=== PATIENT | female | born 1995 | race Two or more races ===

== ENCOUNTER 2017-10-11 15:31 | Emergency (ER) | payer OTHER ==
[~2017-10-11] VITALS: Ht 162.6 cm; Wt 73.5 kg
[2017-10-11] MEDS ORDERED: Ketorolac 30mg Inj IM ONE (16:30)
[2017-10-11] MEDS ORDERED: Tylenol #3 tab (300mg/30mg) ORAL ONE (17:30)
[2017-10-11] MEDS ORDERED: TYLENOL EXTRA500 MG ORAL (17:34)
[2017-10-11] MEDS ORDERED: ZOFRAN4 M3 ORAL (17:34)
[2017-10-11 17:50] VITALS: BP 133/82
--- NOTE | 2017-10-11 21:37 | Emergency Room Report ---
History of Present Illness General Chief Complaint: Vomiting Source: Patient Present Illness HPI The patient is a 22-year-old female presenting for 3 days of nausea, vomiting, and diarrhea. She admits to a sick contact who is her sibling. She states that she had 2 episodes of diarrhea and vomiting today. She is able to tolerate fluids but has decreased appetite. She admits to subjective fever. She denies any other symptoms including dizziness, VALERO, SOB, dysuria, melena, hematochezia Allergies: Coded Allergies: LATEX, NATURAL RUBBER (Verified Allergy, Intermediate, Hives, 10/11/17) Patient History Past Medical History: see triage record Pertinent Family History: none Last Menstrual Period: 09/24/17 Now: No - unk : 0 Para: 0 Reviewed Nursing Documentation: PMH: Agreed, PSxH: Agreed Nursing Documentation-PMH Past Medical History: No Stated History Review of Systems All Other Systems: negative except mentioned in HPI Physical Exam Vital Signs Date Time Temp Pulse Resp B/P (MAP) Pulse Ox O2 Delivery O2 Flow Rate FiO2 10/11/17 15:47 98.2 113 18 108/76 100 Room Air Sp02 EP Interpretation: reviewed, normal General Appearance: no apparent distress, alert, GCS 15, non-toxic Head: normocephalic, atraumatic ENT: hearing grossly normal, normal pharynx, no angioedema, normal voice Neck: full range of motion, supple/symm/no masses Respiratory: chest non-tender, lungs clear, normal breath sounds, speaking full sentences Gastrointestinal: normal bowel sounds, non tender, soft, non-distended, no guarding, no rebound, tenderness - epigastric Rectal: deferred Genitourinary: normal inspection, no CVA tenderness Musculoskeletal: back normal, gait/station normal, normal range of motion, non- tender Neurologic: alert, oriented x3, responsive, motor strength/tone normal, sensory intact, speech normal Psychiatric: judgement/insight normal, memory normal, mood/affect normal, no suicidal/homicidal ideation Skin: normal color, no rash, warm/dry, well hydrated Medical Decision Making PA Attestation Dr. Cobian is my supervising physician. Patient management was discussed with my supervising physician Diagnostic Impression: Primary Impression: Gastroenteritis ER Course The patient is a 22-year-old female presenting for 3 days of nausea, vomiting, and diarrhea. Differential diagnoses considered but not limited to: Gastroenteritis, GERD, gastritis, appendicitis, pancreatitis PE: Vitals WNL. NAD. Abdomen: Normal appearance. Non distended. No ecchymosis. Increased BS. + Epigastric TTP. No McBurney point tenderness. No guarding. No CVA tenderness the patient given pain medication and zofran and is feeling better She'll be discharged home with the same. She will take in plenty fluids and followup with primary doctor. ER precautions are given Last Vital Signs Date Time Temp Pulse Resp B/P (MAP) Pulse Ox O2 Delivery O2 Flow Rate FiO2 10/11/17 17:50 103 18 133/82 98 Room Air 10/11/17 17:50 98.2 Status: improved Disposition: HOME, SELF-CARE Condition: Improved Scripts Ondansetron* (ZOFRAN*) 4 Mg Tablet 4 MG ORAL Q6H Y for Nausea & Vomiting, #10 TAB Prov: NICK WESTON.AJose 10/11/17 Acetaminophen* (TYLENOL EXTRA STRENGTH*) 500 Mg Tablet 500 MG ORAL Q8H Y for Prn Headache/Temp > 101, #30 TAB 0 Refills Prov: NICK WESTON P.A. 10/11/17 Referrals: NOT CHOSEN [facility]/MD,REFERRING Patient Instructions: Viral Gastroenteritis, Adult, Food Choices to Help Relieve Diarrhea, Adult Additional Instructions: I discussed my findings with the patient. All questions and concerns have been answered. Treatment and medication compliance have been addressed. I advised the patient that they need to follow up with PMD in 3-5 days. Return to ED if symptoms worsen, new symptoms arise, or if needed for any reason. Patient verbalized understanding of discharge instructions. NICK WESTON Oct 11, 2017 21:37
== END 2017-10-11 17:50 | disposition home or self-care (01) ==
LOC: EMR 16:28
DX: K52.9 Noninfective gastroenteritis and colitis, unspecified (principal); Z91.040 Latex allergy status
CPT/HCPCS: 96372; 99284; J1885

== ENCOUNTER 2018-04-12 18:15 | Emergency (ER) | payer OTHER ==
[~2018-04-12] VITALS: Ht 162.6 cm; Wt 73.5 kg
[~2018-04-12 18:15] MED LIST: TYLENOL EXTRA500 MG ORAL; ZOFRAN4 M3 ORAL
[2018-04-12] MEDS ORDERED: Mylanta II UD 30ml ORAL ONE (19:15)
[2018-04-12] MEDS ORDERED: Lidocaine 2% Visc 15ml soln ORAL ONE (19:15)
[2018-04-12 19:26] VITALS: BP 118/78
[2018-04-12] MEDS ORDERED: Prochlorperazine 10mg tab ORAL ONE (19:30)
[2018-04-12 20:26] LABS: APPEARANCE,URINE CLEAR; BILIRUBIN, URINE NEGATIVE (NEGATIVE); GLUCOSE, URINE (UA) NEGATIVE (NEGATIVE); KETONES,URINE 1+ (NEGATIVE); LEUKOCYTE ESTERASE ,URINE NEGATIVE (NEGATIVE); NITRITE,URINE NEGATIVE (NEGATIVE); PH,URINE 6 (4.5-8.0); PROTEIN,URINE NEGATIVE (NEGATIVE); UROBILINOGEN,URINE NORMAL MG/DL (0.0-1.0)
[2018-04-12 20:29] LABS: COLOR,URINE YELLOW
--- NOTE | 2018-04-12 21:05 | Emergency Room Report ---
History of Present Illness General Chief Complaint: Abdominal Pain Source: Patient Present Illness HPI 23 YO Female presents to the ED c/o 03/17 in severity epigastric burning, and intermittent dull VALERO's. Reports hx of VALERO's. Describes her symptoms as painful pelvic cramping, with some spotting. pt reports she had unprotected intercourse few days ago. Pt. reports nausea, denies vomiting. denies dizziness, neck pain/ stiffness, constipation, or . pt. reports hx of irregular and painful periods. she denies vaginal d/c, pelvic pain, pain with intercourse or vaginal lesions/rashes. Pt. reports began spotting yesterday. Denies CP, Palpitations, LOC, AMS,Changes in Vision, Sensation, paresthesias, or a sudden severe headache. Allergies: Coded Allergies: LATEX, NATURAL RUBBER (Verified Allergy, Intermediate, Hives, 10/11/17) Patient History Past Medical History: see triage record Past Surgical History: none Pertinent Family History: none Last Menstrual Period: 02/26/18 Now: No : 0 Para: 0 Reviewed Nursing Documentation: PMH: Agreed; PSxH: Agreed Nursing Documentation-PMH Past Medical History: No History, Except For Hx Cardiac Problems: No - GALLBLADDER AND APPENDIX REMOVED Review of Systems All Other Systems: negative except mentioned in HPI Physical Exam Vital Signs Date Time Temp Pulse Resp B/P (MAP) Pulse Ox O2 Delivery O2 Flow Rate FiO2 04/12/18 18:19 98.3 71 17 118/78 96 Room Air 98.2 Sp02 EP Interpretation: reviewed, normal General Appearance: no apparent distress, alert, GCS 15, non-toxic Head: normocephalic, atraumatic ENT: hearing grossly normal, normal voice Neck: full range of motion Respiratory: lungs clear, normal breath sounds, speaking full sentences Cardiovascular #1: regular rate, rhythm Gastrointestinal: normal bowel sounds, non tender, soft Rectal: deferred Genitourinary: normal inspection, no CVA tenderness, adnexa normal Musculoskeletal: back normal, gait/station normal, normal range of motion Neurologic: alert, oriented x3, responsive, motor strength/tone normal, sensory intact, normal gait, speech normal, grossly normal Psychiatric: judgement/insight normal Skin: normal color, no rash, warm/dry, well hydrated Lymphatic: no adenopathy Medical Decision Making PA Attestation Dr. Tai is my supervising Physician whom patient management has been discussed with. Diagnostic Impression: Primary Impression: Abdominal pain Qualified Codes: R10.13 - Epigastric pain Additional Impression: Frequent headaches ER Course 23 YO Female presents to the ED c/o 6/10 in severity epigastric burning, and intermittent dull VALERO's. Reports hx of VALERO's. Describes her symptoms as painful pelvic cramping, with some spotting. pt reports she had unprotected intercourse few days ago. Pt. reports nausea, denies vomiting. denies dizziness, neck pain/ stiffness, constipation, or . pt. reports hx of irregular and painful periods. she denies vaginal d/c, pelvic pain, pain with intercourse or vaginal lesions/rashes. Pt. reports began spotting yesterday. Denies CP, Palpitations, LOC, AMS,Changes in Vision, Sensation, paresthesias, or a sudden severe headache. Ddx considered but are not limited to Diverticulitis, acute appy, diarrhea,UC, PUD, GE, pancreatitis, gallstone, ovarian torsion, ectopic , PID tubo-ovarian abscess, migraine, cluster VALERO's just to name a few. Vital signs: are WNL, pt. is afebrile H&PE are most consistent with [ ] - evidence to suggest acute abdomen at this time, PID low suspicion. will r/o . pt. non-toxic in appearance and NAD. I do not suspect acute emergent intracranial bleed/pathology. normal neuro exam. ORDERS: -UA:few occult blood and rbc's -URINE HCG:Negative ED INTERVENTIONS: -GI Cocktail -compazine - Pt. declined tylenol -I do not identify an emergent condition at this time. With current presentation , pt. is stable for close outpatient follow up and conservative treatment. D/ w pt. to return promptly to ED with worsening or new symptoms.- Pt. (and or responsible constitution party) verbalizes' understanding and agreement with proposed treatment plan.proposed treatment plan. - D/w pt. that repeat test is recommended in 1-2 weeks. DISCHARGE: At this time pt. is stable for d/c to home. Will provide printed patient care instructions, and any necessary prescriptions. Care plan and follow up instructions have been discussed with the patient prior to discharge. Labs Test 04/12/18 19:35 Urine Color Yellow Urine Appearance Clear Urine pH 6 (4.5-8.0) Urine Specific [place] 1.025 (1.005-1.035) Urine Protein Negative (NEGATIVE) Urine Glucose (UA) Negative (NEGATIVE) Urine Ketones 1+ (NEGATIVE) Urine Occult Blood 1+ (NEGATIVE) Urine Nitrite Negative (NEGATIVE) Urine Bilirubin Negative (NEGATIVE) Urine Urobilinogen Normal MG/DL (0.0-1.0) Urine Leukocyte Esterase Negative (NEGATIVE) Urine RBC 2-4 /HPF (0 - 2) Urine WBC 0-2 /HPF (0 - 2) Urine Squamous Epithelial Cells Few /LPF (NONE/OCC) Urine Bacteria Few /HPF (NONE) Urine Mucus Moderate /LPF (NONE/OCC) Urine HCG, Qualitative Negative (NEGATIVE) Last Vital Signs Date Time Temp Pulse Resp B/P (MAP) Pulse Ox O2 Delivery O2 Flow Rate FiO2 04/12/18 19:26 98.2 17 118/78 96 Room Air 98.2 04/12/18 18:19 71 Disposition: HOME, SELF-CARE Condition: Stable Scripts Ranitidine Hcl* (ZANTAC*) 150 Mg Tablet 150 MG ORAL TWICE A DAY for 7 Days, #14 TAB Prov: Sonia Fuentes 04/12/18 Prochlorperazine (COMPAZINE*) 10 Mg Tablet 10 MG ORAL Q6H PRN for For Headache, #5 TAB Prov: Sonia Fuentes 04/12/18 Aspirin/Acetaminophen/Caffeine (EXCEDRIN MIGRAINE GELTAB) 1 Each Tablet 1 EACH PO Q6HR, #20 TAB Prov: Sonia Fuentes 04/12/18 Referrals: [facility],REFERRING (PCP) Patient Instructions: Abdominal Pain, Adult Additional Instructions: Take medications as directed. Follow up with a Primary Care Provider in 3-5 days, even if your symptoms have resolved. Recommend OBGYN follow up as well. repeat testing in 2 weeks. --Please review list of primary care clinics, if you do not already have a primary care provider Return sooner to ED if new symptoms occur, or current symptoms become worse. - Please note that this Emergency Department Report was dictated using [employer] assistant technology software, occasionally this can lead to erroneous entry secondary to interpretation by the dictation equipment. Sonia Fuentes Apr 12, 2018 21:05
[2018-04-12] MEDS ORDERED: COMPAZINE10 MG ORAL (21:06)
[2018-04-12] MEDS ORDERED: ZANTAC150 MG ORAL (21:06)
[2018-04-12] MEDS ORDERED: EXCEDRIN MIGRA1 EACH PO (21:06)
[2018-04-12 21:15] VITALS: BP 118/78
== END 2018-04-12 21:15 | disposition home or self-care (01) ==
LOC: EMR 18:36
DX: R10.13 Epigastric pain (principal); R51 Headache; Z91.040 Latex allergy status; Z90.49 Acquired absence of other specified parts of digestive tract
CPT/HCPCS: 81003; 81025; 99284

== ENCOUNTER 2018-07-01 10:11 | Emergency (ER) | payer OTHER ==
[~2018-07-01] VITALS: Ht 162.6 cm; Wt 74.8 kg
[~2018-07-01 10:11] MED LIST changes: +COMPAZINE10 MG ORAL; +EXCEDRIN MIGRA1 EACH PO; +ZANTAC150 MG ORAL
[2018-07-01 10:31] VITALS: BP 121/73
[2018-07-01 10:46] LABS: APPEARANCE,URINE CLEAR; BILIRUBIN, URINE NEGATIVE (NEGATIVE); COLOR,URINE PALE YELLOW; GLUCOSE, URINE (UA) NEGATIVE (NEGATIVE); KETONES,URINE NEGATIVE (NEGATIVE); LEUKOCYTE ESTERASE ,URINE NEGATIVE (NEGATIVE); NITRITE,URINE NEGATIVE (NEGATIVE); PH,URINE 8 (4.5-8.0); PROTEIN,URINE NEGATIVE (NEGATIVE); UROBILINOGEN,URINE NORMAL MG/DL (0.0-1.0)
--- NOTE | 2018-07-01 11:47 | Emergency Room Report ---
History of Present Illness General Chief Complaint: Abdominal Pain Source: Patient Present Illness HPI Patient's 23-year-old female presented after increased abdominal pain. Patient reports having increased lower bowel pain associated with nausea and vomiting. She reports having symptoms for approximately 2 weeks. Patient reports having decreased appetite. Patient had unprotected sex approximately a month ago. She denies any fever. She reports multiple episodes of nausea and vomiting. Allergies: Coded Allergies: LATEX, NATURAL RUBBER (Verified Allergy, Intermediate, Hives, 07/01/18) Patient History Last Menstrual Period: May 22, 2018 Reviewed Nursing Documentation: PMH: Agreed; PSxH: Agreed Nursing Documentation-PMH Hx Cardiac Problems: No - GALLBLADDER 2015 AND APPENDIX 2012 REMOVED Review of Systems All Other Systems: negative except mentioned in HPI Physical Exam Vital Signs Date Time Temp Pulse Resp B/P (MAP) Pulse Ox O2 Delivery O2 Flow Rate FiO2 07/01/18 10:20 98.3 79 15 121/73 98 Room Air 98.2 Sp02 EP Interpretation: reviewed, normal General Appearance: normal inspection, well appearing, no apparent distress, alert, GCS 15 Head: atraumatic ENT: normal ENT inspection, hearing grossly normal, normal voice Neck: normal inspection, full range of motion, supple, no bony tend Respiratory: normal inspection, lungs clear, normal breath sounds, no respiratory distress, no retraction, no wheezing Cardiovascular #1: regular rate, rhythm, no edema Gastrointestinal: normal inspection, normal bowel sounds, non tender, soft, no guarding, no hernia Genitourinary: no CVA tenderness Musculoskeletal: normal inspection, back normal, normal range of motion Neurologic: normal inspection, alert, oriented x3, responsive, thermoforming machine operator III-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 Differential diagnoses included ectopic , ischemic bowel, appendicitis, perforated viscus, abdominal aortic aneurysm, inferior myocardial infarction, viral gastroenteritis. Because of complexity of patient's case laboratory testing and imaging studies were ordered. A urine test was noted to be positive. Patient was advised risk benefits and alternatives of Zofran and she indicated understanding and wanted to proceed with Zofran had despite risks. Patient was given IV fluids as well as Zofran.Pelvic ultrasound showed intrauterine gestational sac without pole. The patient appears to have early . The patient was given IV fluids with improvement in her symptoms.The patient is advised to follow up with primary care doctor in 1-2 days. Patient is advised to return if any worsening condition or if any changes in status that are concerning. This report is dictated with [employer] executive business coach software which may occasionally lead to discrepancies related to use of this software. Labs Test 07/01/18 08:30 07/01/18 12:00 Urine Color Pale yellow Urine Appearance Clear Urine pH 8 (4.5-8.0) Urine Specific [place] 1.010 (1.005-1.035) Urine Protein Negative (NEGATIVE) Urine Glucose (UA) Negative (NEGATIVE) Urine Ketones Negative (NEGATIVE) Urine Blood Negative (NEGATIVE) Urine Nitrite Negative (NEGATIVE) Urine Bilirubin Negative (NEGATIVE) Urine Urobilinogen Normal MG/DL (0.0-1.0) Urine Leukocyte Esterase Negative (NEGATIVE) Urine HCG, Qualitative Positive (NEGATIVE) White Blood Count 6.1 K/UL (4.8-10.8) Red Blood Count 4.39 M/UL (4.20-5.40) Hemoglobin 13.4 G/DL (12.0-16.0) Hematocrit 39.5 % (37.0-47.0) Mean Corpuscular Volume 90 FL (80-99) Mean Corpuscular Hemoglobin 30.5 PG (27.0-31.0) Mean Corpuscular Hemoglobin Concent 33.9 G/DL (32.0-36.0) Red Cell Distribution Width 11.0 % (11.6-14.8) Platelet Count 238 K/UL (150-450) Mean Platelet Volume 8.7 FL (6.5-10.1) Neutrophils (%) (Auto) 67.5 % (45.0-75.0) Lymphocytes (%) (Auto) 25.3 % (20.0-45.0) Monocytes (%) (Auto) 5.1 % (1.0-10.0) Eosinophils (%) (Auto) 1.5 % (0.0-3.0) Basophils (%) (Auto) 0.7 % (0.0-2.0) Sodium Level 136 MMOL/L (136-145) Potassium Level 4.2 MMOL/L (3.5-5.1) Chloride Level 103 MMOL/L (98-107) Carbon Dioxide Level 25 MMOL/L (21-32) Anion Gap 8 mmol/L (5-15) Blood Urea Nitrogen 6 mg/dL (7-18) Creatinine 0.7 MG/DL (0.55-1.30) Estimat Glomerular Filtration Rate > 60 mL/min (>60) Glucose Level 91 MG/DL (74-106) Calcium Level 9.2 MG/DL (8.5-10.1) Total Bilirubin 0.4 MG/DL (0.2-1.0) Aspartate Amino Transf (AST/SGOT) 24 U/L (15-37) Alanine Aminotransferase (ALT/SGPT) 24 U/L (12-78) Alkaline Phosphatase 70 U/L (46-116) Total Protein 7.8 G/DL (6.4-8.2) Albumin 4.0 G/DL (3.4-5.0) Globulin 3.8 g/dL Albumin/Globulin Ratio 1.1 (1.0-2.7) Lipase 79 U/L (73-393) Human Chorionic Gonadotropin, Quant 3801 mIU/mL (1-6) Last Vital Signs Date Time Temp Pulse Resp B/P (MAP) Pulse Ox O2 Delivery O2 Flow Rate FiO2 07/01/18 10:31 98.2 69 15 121/73 98 Room Air 98.2 Status: improved Disposition: HOME, SELF-CARE Condition: Stable Scripts Doxylamine/Pyridoxine Hcl (SWATHI LUGO 10-10 MG TABLET) 1 Each Tablet. 1 EACH PO [facility], #30 TAB Prov: Shailesh Tai MD 07/01/18 Referrals: [facility],REFERRING (PCP) Shailesh Tai MD Jul 01, 2018 11:47
[2018-07-01 12:30] LABS: BASOPHILS % (AUTO) 0.7 % (0.0-2.0); EOSINOPHILS % (AUTO) 1.5 % (0.0-3.0); HEMATOCRIT 39.5 % (37.0-47.0); HEMOGLOBIN 13.4 G/DL (12.0-16.0); LYMPHOCYTES % (AUTO) 25.3 % (20.0-45.0); MEAN CORPUSCULAR VOLUME 90 FL (80-99); MONOCYTES % (AUTO) 5.1 % (1.0-10.0); NEUTROPHILS % (AUTO) 67.5 % (45.0-75.0); PLATELET COUNT 238 K/UL (150-450); RED BLOOD COUNT 4.39 M/UL (4.20-5.40); WHITE BLOOD COUNT 6.1 K/UL (4.8-10.8)
[2018-07-01 12:34] LABS: ANION GAP 8 mmol/L (5-15); BLOOD UREA NITROGEN 6 mg/dL (7-18); CALCIUM 9.2 MG/DL (8.5-10.1); CARBON DIOXIDE 25 MMOL/L (21-32); CHLORIDE 103 MMOL/L (98-107); CREATININE 0.7 MG/DL (0.55-1.30); POTASSIUM 4.2 MMOL/L (3.5-5.1); SODIUM 136 MMOL/L (136-145)
[2018-07-01 12:39] LABS: ALANINE AMINOTRANSFERASE 24 U/L (12-78); ALBUMIN/GLOBULIN RATIO 1.1 (1.0-2.7); ALKALINE PHOSPHATASE 70 U/L (46-116); ASPARTATE AMINO TRANSFERASE 24 U/L (15-37); BILIRUBIN,TOTAL 0.4 MG/DL (0.2-1.0)
[2018-07-01] MEDS ORDERED: DICLEGIS DR 101 EACH PO (14:04)
[2018-07-01 14:10] VITALS: BP_SYST 121; BP_SYST 127; BP_DIAS 69; BP_DIAS 73
--- NOTE | 2018-07-01 14:33 | Diagnostic Imaging Report ---
Indication: Pain. Technique: Transabdominal and endovaginal pelvic ultrasound was performed. Duplex Doppler evaluation was also performed. Findings: The uterus measures 7.3 x 5 x 3.7 cm. The endometrium is thickened at 1.7 cm. A anechoic structure is noted within the endometrial cavity with diameter of approximately 7 mm. This is too small for reliable dating. No yolk sac or pole is identified. The right ovary measures 3.2 x 2.9 x 1.9 cm/9 mL. A likely corpus luteum cyst is noted in the right ovary measuring approximately 1.9 cm. The left ovary measures 2.8 x 2.2 x 1.8 cm/5.5 mL. Color and Doppler flow is noted to the bilateral ovaries. There is trace free pelvic fluid. IMPRESSION: Well-circumscribed cystic intrauterine structure may represent a gestational sac. No yolk sac or pole identified at this time. Findings may be related to early . Additional etiologies not excluded. Recommend correlation with trended beta-HCG and short-term interval follow-up ultrasound.
== END 2018-07-01 14:10 | disposition home or self-care (01) ==
LOC: EMR 10:39
DX: O26.891 Other specified pregnancy related conditions, first trimester (principal); R10.9 Unspecified abdominal pain; Z3A.01 Less than 8 weeks gestation of pregnancy
CPT/HCPCS: 36415; 76801; 80053; 81003; 81025; 83690; 84702; 85025; 86850; 86900; 86901; 96374; 99284; J2405

== ENCOUNTER 2019-04-21 09:50 | Emergency (ER) | payer OTHER ==
[~2019-04-21] VITALS: Ht 162.6 cm; Wt 70.3 kg
[~2019-04-21 09:50] MED LIST changes: +DICLEGIS DR 101 EACH PO
--- NOTE | 2019-04-21 10:04 | NUR ---
ED Nurse Note: pt walked in due to abdominal pain started 5 days ago, pt stated she gave 8 weeks ago and also complaining of rash on her genital area. pt complains of 5/10 lower abdominal pain accompanied by nausea. will continue to monitor.
[2019-04-21 10:08] VITALS: BP 111/71
--- NOTE | 2019-04-21 10:17 | NUR ---
ED Nurse Note: ermd on bedside with maulik nesbitt.
--- NOTE | 2019-04-21 10:31 | NUR ---
ED Nurse Note: pt able to give urine sample and was sent to lab.
--- NOTE | 2019-04-21 10:56 | Emergency Room Report ---
History of Present Illness General Chief Complaint: Abdominal Pain Source: Patient Present Illness HPI 24-year-old female presents with vaginal discharge x5 days, white, thick white contest consistency, achy abdominal pain, no fevers no chills, patient recently gave , she denies any chest pain, no shortness of breath, she denies any aggravating or alleviating factors for the lower abdominal pain. Patient presents for evaluation Allergies: Coded Allergies: LATEX, NATURAL RUBBER (Verified Allergy, Intermediate, Hives, 07/01/18) Patient History Past Medical History: see triage record Now: No Reviewed Nursing Documentation: PMH: Agreed; PSxH: Agreed Nursing Documentation-PMH Past Medical History: No History, Except For Hx Cardiac Problems: No - GALLBLADDER 2015 AND APPENDIX 2013 REMOVED Review of Systems Constitutional: Denies: chills, fever Eye: Denies: blurred vision, double vision ENT: Denies: throat pain, nasal discharge Respiratory: Denies: cough, shortness of breath Cardiovascular: Denies: chest pain, palpitations Gastrointestinal: Reports: abdominal pain; Denies: diarrhea, nausea, vomiting Genitourinary: Reports: other - Vaginal discharge; Denies: dysuria, pain Musculoskeletal: Denies: back pain, muscle pain Skin: Denies: rash, lesions Neurological: Denies: headache, focal weakness Hematologic/Lymphatic: Denies: easy bleeding, easy bruising All Other Systems: negative except mentioned in HPI Physical Exam Vital Signs Date Time Temp Pulse Resp B/P (MAP) Pulse Ox O2 Delivery O2 Flow Rate FiO2 04/21/19 09:53 97.5 69 20 111/71 (84) 99 Room Air Sp02 EP Interpretation: reviewed, normal General Appearance: well appearing, no apparent distress, alert Head: normocephalic, atraumatic Eyes: bilateral eye PERRL, bilateral eye EOMI ENT: uvula midline, moist mucus membranes Neck: supple, thyroid normal, supple/symm/no masses Respiratory: lungs clear, no respiratory distress, no retraction, no accessory muscle use Cardiovascular #1: normal peripheral pulses, regular rate, rhythm, no edema, no gallop, no murmur Gastrointestinal: non tender, soft, no guarding, no rebound Genitourinary: ext genitalia/vag normal, other - Manager [employer] Katheryn PAGAN, patient with white cottage cheeselike discharge, no CMT, Musculoskeletal: normal inspection Neurologic: alert, oriented x3 Psychiatric: mood/affect normal Skin: no rash, warm/dry Medical Decision Making ER Course Patient most likely with candidal vaginitis, patient given a dose of fluconazole in the emergency room, will disposition patient home with return precautions, patient counseled to follow-up with [facility], Suspicion for intra-abdominal pathology, low suspicion for SBO, low suspicion for diverticulitis abdomen soft NT Last Vital Signs Date Time Temp Pulse Resp B/P (MAP) Pulse Ox O2 Delivery O2 Flow Rate FiO2 04/21/19 10:08 97.5 69 20 111/71 99 Room Air Disposition: HOME, SELF-CARE Condition: Improved Referrals: [facility],REFERRING (PCP) [facility] Patient Instructions: Vaginitis, [id number], Abdominal Pain, Adult Additional Instructions: The patient was provided with discharge instructions, notified to follow-up with a primary care doctor and or specialist in the next 24-48 hours, and to return to the ED if they have worsening of their symptoms. Please note that this report is being documented using [employer] technology. This can lead to erroneous entry secondary to incorrect interpretation by the dictating instrument. Michael Bunn M.D. Apr 21, 2019 10:56
[2019-04-21] MEDS ORDERED: Fluconazole 100mg tab ORAL ONE (11:00)
[2019-04-21 11:07] VITALS: BP 124/68
--- NOTE | 2019-04-21 11:07 | NUR ---
ER DISCHARGE NOTE: Patient is cleared to be discharged per ERMD, pt is aox4, on room air, with stable vital signs. pt was given dc and prescription instructions, pt was able to verbalize understanding, pt id band removed. pt is able to ambulate with steady gait. pt took all belongings.
== END 2019-04-21 11:07 | disposition home or self-care (01) ==
LOC: EMR 10:33
DX: N89.8 Other specified noninflammatory disorders of vagina (principal); Z91.040 Latex allergy status; Z90.49 Acquired absence of other specified parts of digestive tract; Z90.89 Acquired absence of other organs; R10.9 Unspecified abdominal pain
CPT/HCPCS: 81025; 99283

== ENCOUNTER 2019-08-29 14:51 | Emergency (ER) | payer OTHER ==
[~2019-08-29] VITALS: Ht 162.6 cm; Wt 74.8 kg
[2019-08-29 15:39] VITALS: BP 105/80
[2019-08-29 15:55] LABS: APPEARANCE,URINE SLIGHTLY CLOUDY; BILIRUBIN, URINE NEGATIVE (NEGATIVE); GLUCOSE, URINE (UA) NEGATIVE (NEGATIVE); KETONES,URINE NEGATIVE (NEGATIVE); LEUKOCYTE ESTERASE ,URINE 1+ (NEGATIVE); NITRITE,URINE NEGATIVE (NEGATIVE); PH,URINE 6 (4.5-8.0); PROTEIN,URINE 1+ (NEGATIVE); UROBILINOGEN,URINE 1 MG/DL (0.0-1.0)
[2019-08-29 16:08] LABS: COLOR,URINE YELLOW
[2019-08-29 16:10] LABS: BASOPHILS % (AUTO) 0.7 % (0.0-2.0); EOSINOPHILS % (AUTO) 1.1 % (0.0-3.0); HEMATOCRIT 37.4 % (37.0-47.0); HEMOGLOBIN 13.1 G/DL (12.0-16.0); LYMPHOCYTES % (AUTO) 15.3 % (20.0-45.0); MEAN CORPUSCULAR VOLUME 86 FL (80-99); MONOCYTES % (AUTO) 6.1 % (1.0-10.0); NEUTROPHILS % (AUTO) 76.9 % (45.0-75.0); PLATELET COUNT 313 K/UL (150-450); RED BLOOD COUNT 4.37 M/UL (4.20-5.40)
[2019-08-29 16:14] LABS: ANION GAP 12 mmol/L (5-15); BLOOD UREA NITROGEN 9 mg/dL (7-18); CALCIUM 8.5 MG/DL (8.5-10.1); CARBON DIOXIDE 25 MMOL/L (21-32); CHLORIDE 103 MMOL/L (98-107); CREATININE 0.8 MG/DL (0.55-1.30); POTASSIUM 3.6 MMOL/L (3.5-5.1); SODIUM 140 MMOL/L (136-145)
[2019-08-29 16:19] LABS: ALANINE AMINOTRANSFERASE 25 U/L (12-78); ALBUMIN 3.8 G/DL (3.4-5.0); ALKALINE PHOSPHATASE 101 U/L (46-116); ASPARTATE AMINO TRANSFERASE 16 U/L (15-37); BILIRUBIN,TOTAL 0.4 MG/DL (0.2-1.0)
--- NOTE | 2019-08-29 16:31 | Emergency Room Report ---
History of Present Illness General Chief Complaint: Sore Throat Source: Patient Present Illness HPI 24-year-old female with no symptom past medical history here complaining of sore throat and body aches x3 days. Patient presents with tachycardia however denies chest pain palpitation. Denies shortness of breath, cough and congestion. Complains of the fever and chills and reports has not taken medication for symptom relief. Patient gave 6 months ago via natural and denies any surgical history in the abdomen. Denies photophobia, neck stiffness, headache and dizziness. Patient is in no apparent distress. Denies urinary symptoms. Denies vomiting. Patient denies , reports that menstruation was very recent and regular. Allergies: Coded Allergies: LATEX, NATURAL RUBBER (Verified Allergy, Intermediate, Hives, 07/01/18) Patient History Past Medical History: see triage record Past Surgical History: unable to obtain Pertinent Family History: none Last Menstrual Period: 08/25/2019 Now: No Immunizations: UTD Reviewed Nursing Documentation: PMH: Agreed; PSxH: Agreed Nursing Documentation-PMH Past Medical History: No Stated History Hx Cardiac Problems: No - GALLBLADDER 2015 AND APPENDIX 2013 REMOVED Review of Systems All Other Systems: negative except mentioned in HPI Physical Exam Vital Signs Date Time Temp Pulse Resp B/P (MAP) Pulse Ox O2 Delivery O2 Flow Rate FiO2 08/29/19 15:23 99.7 117 20 105/80 (88) 95 Room Air Sp02 EP Interpretation: reviewed, normal General Appearance: no apparent distress, alert, GCS 15, non-toxic Head: normocephalic, atraumatic Eyes: bilateral eye normal inspection, bilateral eye PERRL ENT: hearing grossly normal, no angioedema, normal voice, nasal congestion, pharyngeal erythema, tonsillar exudate Neck: normal inspection, full range of motion, supple, thyroid normal, no meningismus Respiratory: chest non-tender, lungs clear, normal breath sounds, no rhonchi, no wheezing, speaking full sentences Cardiovascular #1: regular rate, rhythm, no edema, no murmur, normal capillary refill Gastrointestinal: non tender, soft, no mass, no organomegaly, no peritonitis Genitourinary: no CVA tenderness Musculoskeletal: back normal Neurologic: alert, motor strength/tone normal, oriented x3, sensory intact, responsive, speech normal Psychiatric: judgement/insight normal, memory normal, mood/affect normal, no suicidal/homicidal ideation Skin: no rash Lymphatic: no adenopathy Medical Decision Making PA Attestation All my diagnosis and treatment plans were reviewed ad discussed with my supervising physician Dr. Lopez Diagnostic Impression: Primary Impression: Strep pharyngitis Additional Impressions: Nausea UTI (urinary tract infection) ER Course 24-year-old female with no symptom past medical history here complaining of sore throat and body aches x3 days. Patient presents with tachycardia however denies chest pain palpitation. Denies shortness of breath, cough and congestion. Complains of the fever and chills and reports has not taken medication for symptom relief. Patient gave 6 months ago via natural and denies any surgical history in the abdomen. Denies photophobia, neck stiffness, headache and dizziness. Patient is in no apparent distress. Denies urinary symptoms. Denies vomiting. Patient denies , reports that menstruation was very recent and regular. Ddx considered but are not limited to: strep pharyngitis, URI, tonsillitis, peritonsillar abscess, influneza Vital signs: are WNL, pt. is afebrile H&PE are most consistent with: Strep pharyngitis, nausea, incidental finding of urinary tract infection ORDERS: EKG, troponin, cbc, cmp, UA, azithromycin, Zofran,motrin ED INTERVENTIONS: ns bolus, zofran, DISCHARGE: At this time pt. is stable for d/c to home. Will provide printed patient care instructions, and any necessary prescriptions. Care plan and follow up instructions have been discussed with the patient prior to discharge. Take medication as directed, follow-up with your primary care provider, if worsening return to ER. EKG Diagnostic Results Rate: normal Rhythm: NSR ST Segments: no acute changes Other Impression no acute ST changes Last Vital Signs Date Time Temp Pulse Resp B/P (MAP) Pulse Ox O2 Delivery O2 Flow Rate FiO2 08/29/19 15:39 99.7 20 105/80 95 Room Air 08/29/19 15:23 117 Disposition: HOME, SELF-CARE Condition: Stable Scripts Ondansetron (Zofran) 4 Mg Tablet 4 MG ORAL Q6H PRN for Nausea & Vomiting, #10 TAB Prov: Whitney Armas 08/29/19 Ibuprofen* (MOTRIN*) 600 Mg Tablet 600 MG ORAL Q8H PRN for For Pain, #30 TAB 0 Refills Prov: Whitney Armas 08/29/19 Azithromycin* (ZITHROMAX*) 250 Mg Tablet 250 MG ORAL DAILY, #6 TAB 0 Refills Take two tables once daily for 1 day, then one tablet once daily for 4 days. Prov: Whitney Armas 08/29/19 Referrals: NON PHYSICIAN (PCP) Patient Instructions: Nausea, Adult, [id number], Urinary Tract Infection, [id number] Additional Instructions: Take medication as directed, follow-up with your primary care provider, if worsening symptoms return to the emergency room Whitney Armas Aug 29, 2019 16:31
[2019-08-29] MEDS ORDERED: ZOFRAN4 M1 ORAL (16:32)
[2019-08-29] MEDS ORDERED: ZITHROMAX250 MG ORAL (16:32)
[2019-08-29] MEDS ORDERED: IBUPROFEN600 MG ORAL (16:32)
[2019-08-29 16:59] VITALS: BP 109/79
--- NOTE | 2019-08-29 17:07 | NUR ---
ED Nurse Note: pt walked in for flu like symptoms general body aches ermd eval done blood and urine was sent ermd eval done pt tolerated meds well. vss.
--- NOTE | 2019-08-29 17:08 | NUR ---
ED Nurse Note: Pt cleared by health care Provider for discharge. DC instructions/prescription was given and explained to pt and verbalized understanding of teachings. All medical deviecs such as ID band removed. Pt is AAO x4, ambulatory and left with all personal belongings.
== END 2019-08-29 17:08 | disposition home or self-care (01) ==
LOC: EMR 15:05
DX: J02.0 Streptococcal pharyngitis (principal); R11.0 Nausea; N39.0 Urinary tract infection, site not specified; Z90.49 Acquired absence of other specified parts of digestive tract; Z91.040 Latex allergy status
CPT/HCPCS: 36415; 80053; 81001; 84484; 85025; 87086; 93005; 96361; 96374; 99284; J2405; J7030

== ENCOUNTER 2020-07-24 19:38 | Emergency (ER) | payer MEDICAID, OTHER ==
[~2020-07-24] VITALS: Ht 162.6 cm; Wt 77.6 kg
[~2020-07-24 19:38] MED LIST changes: +IBUPROFEN600 MG ORAL; +ZITHROMAX250 MG ORAL; +ZOFRAN4 M1 ORAL
[2020-07-24 20:00] VITALS: BP 118/77
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
[2020-07-24] MEDS ORDERED: Acetaminophen 500mg (ES) tab ORAL ONE (20:30)
--- NOTE | 2020-07-24 20:41 | Diagnostic Imaging Report ---
EXAM: XR Left Wrist Complete, 3 or More Views CLINICAL HISTORY: PAIN TECHNIQUE: Frontal, lateral and oblique views of the left wrist. COMPARISON: No relevant prior studies available. FINDINGS: Bones/joints: No acute fracture. No dislocation. Minimal negative ulnar variance. Soft tissues: Unremarkable. No radiopaque foreign body. IMPRESSION: No acute osseous abnormalities.
--- NOTE | 2020-07-24 20:42 | Diagnostic Imaging Report ---
EXAM: XR Left Ribs, 2 Views CLINICAL HISTORY: PAIN TECHNIQUE: Frontal and oblique views of the left ribs. COMPARISON: No relevant prior studies available. FINDINGS: Lungs: No consolidation or mass. Pleural space: No effusion. Bones/joints: No acute fracture. No dislocation. IMPRESSION: No acute osseous abnormalities.
[2020-07-24] MEDS ORDERED: IBUPROFEN600 M1 ORAL (20:56)
--- NOTE | 2020-07-24 21:05 | NUR ---
ER DISCHARGE NOTE: pt's L wrist was placed in splint per ERMD orders. Patient is cleared to be discharged per ERMD, pt is aox4, on room air, with stable vital signs. pt was given dc and prescription instructions, pt was able to verbalize understanding, pt id band removed without complications. pt is able to ambulate with steady gait. pt took all belongings.
[2020-07-24 21:06] VITALS: BP 118/77
--- NOTE | 2020-07-25 19:31 | Cardiology Report ---
APPROVED REPORT EKG Measurement Heart [id number] <Conclusion> Normal sinus rhythm Normal ECG
== END 2020-07-24 21:05 | disposition home or self-care (01) ==
LOC: EMR 20:07
DX: S61.512A Laceration without foreign body of left wrist, initial encounter (principal); S60.812A Abrasion of left wrist, initial encounter; R07.9 Chest pain, unspecified; Z90.89 Acquired absence of other organs; Z90.49 Acquired absence of other specified parts of digestive tract; Z91.040 Latex allergy status; V43.52XA Car driver injured in collision with other type car in traffic accident, initial encounter; Y92.410 Unspecified street and highway as the place of occurrence of the external cause
CPT/HCPCS: 29125; 71101; 73110; 81025; 93005; Z7502; 99284